=== PATIENT | female | born 1980 | race Caucasian/White ===

== ENCOUNTER 2018-05-08 16:38 | Emergency (ER) | payer OTHER | END 2018-05-08 18:14 | disposition home or self-care (01) | LOC: JERFT 16:38 ==

== ENCOUNTER 2019-03-07 11:48 | Emergency (ER) | payer OTHER ==
[2019-03-07 11:54] VITALS: BP 121/72; PULSE 106; TEMP 98.5; BMI 26.4
[2019-03-07] MEDS ORDERED: ACETAMINOPHEN 1000 MG/100 ML VIAL (NON FORMULARY) IVPB ONE (12:31)
[2019-03-07] MEDS ORDERED: SODIUM CHLORIDE 1,000 ML IV STA (12:31)
[2019-03-07] MEDS ORDERED: ONDANSETRON 4 MG/2 ML VIAL IVPUSH ONE (12:31)
--- NOTE | 2019-03-07 12:46 | PDOC ---
*Physical Exam - Vital Signs Last Vital Signs Temp Pulse Resp BP Pulse Ox 98.5 F 106 H 19 121/72 99 03/07/19 11:50 03/07/19 11:50 03/07/19 11:50 03/07/19 11:50 03/07/19 11:50 - Physical Exam 03/07/19 12:45 The patient was examined by [AILEEN Ortega] under my direct supervision. I personally evaluated the patient. I concur with the above findings and the plan of care. Discharge - Follow up/Referral Referrals: Zak Woodard PA [Primary Care Provider] - - Patient Discharge Instructions - Post Discharge Activity
[2019-03-07 13:50] LABS: BASO % 0.4 % (0-2.0); EOS % 0.1 % (0-4.5); HEMATOCRIT 38.6 % (32.4-45.2); HEMOGLOBIN 12.9 GM/dL (10.7-15.3); LYMPH % 12.8 % (8-40); MCHC 33.3 g/dl (32.0-36.0); MEAN CELL VOLUME 84.1 fl (80-96); MEAN PLT VOLUME 8.4 fl (7.5-11.1); MONO % 7.7 % (3.8-10.2); PLATELET COUNT 309 K/MM3 (134-434); RBC 4.59 M/mm3 (3.60-5.2); RDW 13.6 % (11.6-15.6); WHITE BLOOD COUNT 7.5 K/mm3 (4.0-10.0)
[2019-03-07 14:14] LABS: ALBUMIN 4.2 g/dl (3.4-5.0); BILIRUBIN,TOTAL 0.5 mg/dL (0.2-1); BLOOD UREA NITROGEN 8.6 mg/dL (7-18); CALCIUM 9.5 mg/dL (8.5-10.1); CREATININE 0.7 mg/dL (0.55-1.3); MAGNESIUM 2.1 mg/dL (1.8-2.4); POTASSIUM 4.1 mmol/L (3.5-5.1); TOT PROT 7.8 g/dl (6.4-8.2)
[2019-03-07] MEDS ORDERED: ACETAMINOPHEN INJECTION 0 ML IVPB ONE (14:28)
[2019-03-07] MEDS ORDERED: ONDANSETRON 4 MG/2 ML VIAL ONE (14:29)
--- NOTE | 2019-03-07 15:21 | PDOC ---
History of Present Illness - General Chief Complaint: Pain Stated Complaint: ABD. PAIN Time Seen by Provider: 03/07/19 12:19 History Source: Patient Exam Limitations: No Limitations Past History - Past Medical History Allergies/Adverse Reactions: Allergies Allergy/AdvReac Type Severity Reaction Status Date / Time Sulfa (Sulfonamide Allergy Verified 03/07/19 11:54 Antibiotics) Home Medications: Ambulatory Orders Cephalexin Monohydrate [Keflex -] 500 mg PO Q8H #21 capsule 05/08/18 Asthma: Yes Cancer: Yes (UTERINE) COPD: No - Surgical History Abdominal Surgery: (UTERINE LASER SX FOR CA) - Psycho Social/Smoking Cessation Hx Smoking History: Never smoked Information on smoking cessation initiated: No Hx Alcohol Use: No Drug/Substance Use Hx: No *Physical Exam - Vital Signs Last Vital Signs Temp Pulse Resp BP Pulse Ox 98.5 F 106 H 19 121/72 99 03/07/19 11:50 03/07/19 11:50 03/07/19 11:50 03/07/19 11:50 03/07/19 11:50 - Physical Exam General Appearance: No: Apparent Distress Respiratory/Chest: positive: Lungs Clear, Normal Breath Sounds. negative: Respiratory Distress Cardiovascular: positive: Regular Rhythm, Regular Rate, S1, S2. negative: Murmur Gastrointestinal/Abdominal: positive: Normal Bowel Sounds, Soft. negative: Tender, Distended, Guarding, Rebound Integumentary: positive: Normal Color Neurologic: positive: Alert ED Treatment Course - LABORATORY CBC & Chemistry Diagram: 03/07/19 13:32 03/07/19 13:32 - ADDITIONAL ORDERS Additional order review: Laboratory Results 03/07/19 13:32 Sodium 137 Potassium 4.1 Chloride 101 Carbon Dioxide 27 Anion Gap 9 BUN 8.6 Creatinine 0.7 Est GFR (CKD-EPI)AfAm 125.61 Est GFR (CKD-EPI)NonAf 108.38 Random Glucose 108 H Calcium 9.5 Magnesium 2.1 Total Bilirubin 0.5 AST 12 L ALT 16 Alkaline Phosphatase 94 Total Protein 7.8 Albumin 4.2 03/07/19 13:32 RBC 4.59 MCV 84.1 MCHC 33.3 RDW 13.6 MPV 8.4 Neutrophils % 79.0 Lymphocytes % 12.8 Monocytes % 7.7 Eosinophils % 0.1 Basophils % 0.4 - Medications Given in the ED: ED Medications Discontinued Medications Generic Name Dose Route Start Last Admin Trade Name Bry PRN Reason Stop Dose Admin Acetaminophen 1,000 mg 03/07/19 12:31 03/07/19 14:51 Ofirmev Injection - IVPB 03/07/19 12:32 Not Given ONCE ONE Sodium Chloride 1,000 mls @ 1,000 mls/hr 03/07/19 12:31 03/07/19 14:51 Normal Saline - IV 03/07/19 13:30 Not Given ASDIR STA Ondansetron HCl 4 mg 03/07/19 12:31 03/07/19 14:51 Zofran Injection IVPUSH 03/07/19 12:32 Not Given ONCE ONE Medical Decision Making - Medical Decision Making 38 y/o F with hx of uterine CA s/p hysterectomy (08/2018) presents with epigastric pain, NBNB emesis x3, watery diarrhea x4 episodes from midnight today. Patient traveled to last week; mentions she had diarrhea while in [place] as well, but it resolved after few days. Also mentions subjective fever from today, but did not check temperature. Mentions she had some food at work yesterday and is not sure if that is what triggered her symptoms. Denies use of abx, sob, cp, urinary symptoms. Patient afebrile here (did not take any antipyretics) Labs reviewed and unremarkable Patient drank large amount of water (given PO) and tolerated crackers as well Patient clinically appears well Patient had no episode of vomiting or diarrhea while in ED Do not feel this currently necessitates need for abx D/W Dr. Loo 03/07/19 15:16 Discharge - Discharge Information Problems reviewed: Yes Clinical Impression/Diagnosis: Acute gastroenteritis Condition: Stable Disposition: HOME - Admission No - Additional Discharge Information Prescription Drug Monitoring Program (I-STOP) results: I-STOP not reviewed - Follow up/Referral Referrals: Zak Woodard PA [Primary Care Provider] - 2 Days - Patient Discharge Instructions Patient Printed Discharge Instructions: DI for Viral Gastroenteritis -- Adult Additional Instructions: Thank you for choosing [facility]. It was a pleasure taking care of you. Drink at least 3L of water daily Eat light food like bananas, rice, applesauce, toast, soup, crackers until feeling better Follow-up with your doctor in 2 days Return to the Emergency Department if your symptoms worsen or persist, you have fever, unable to keep down liquids, or other concerning symptoms. - Post Discharge Activity
== END 2019-03-07 15:22 | disposition home or self-care (01) ==
LOC: JER 11:48
DX: K52.9 Noninfective gastroenteritis and colitis, unspecified (principal); Z88.2 Allergy status to sulfonamides; Z85.42 Personal history of malignant neoplasm of other parts of uterus; J45.909 Unspecified asthma, uncomplicated
CPT/HCPCS: 36415; 80053; 83735; 85025; 99282-25

== ENCOUNTER 2020-11-07 17:12 | Emergency (ER) | payer OTHER ==
[2020-11-07 17:49] VITALS: BP 127/79; PULSE 68; TEMP 98.3; BMI 27.3
[2020-11-07] MEDS ORDERED: KETOROLAC TROMETHAMINE 30 MG/1 ML VIAL IVPUSH ONE (20:37)
[2020-11-07 20:59] LABS: EOS % 2.5 % (0-4.5); HEMATOCRIT 38.3 % (32.4-45.2); HEMOGLOBIN 13.1 GM/dL (10.7-15.3); LYMPH % 38.7 % (8-40); MCH 29.6 pg (25.7-33.7); MCHC 34.1 g/dl (32.0-36.0); MEAN CELL VOLUME 86.8 fl (80-96); MEAN PLT VOLUME 8.3 fl (7.5-11.1); MONO % 7.9 % (3.8-10.2); NEUT % 49.9 % (42.8-82.8); PLATELET COUNT 281 10^3/uL (134-434); RBC 4.41 M/mm3 (3.60-5.2); RDW 13.5 % (11.6-15.6); WHITE BLOOD COUNT 7.3 K/mm3 (4.0-10.0)
[2020-11-07 21:24] LABS: CHLORIDE 105 mmol/L (98-107); SODIUM 139 mmol/L (136-145)
[2020-11-07 21:26] LABS: CALCIUM 8.8 mg/dL (8.5-10.1)
[2020-11-07 21:27] LABS: ALBUMIN 4.3 g/dl (3.4-5.0); ANION GAP 9 MMOL/L (8-16); BLOOD UREA NITROGEN 14.9 mg/dL (7-18); CO2 25 mmol/L (21-32); GLUCOSE,RANDOM 109 mg/dL (74-106)
[2020-11-07 21:30] LABS: CREATININE 0.7 mg/dL (0.55-1.3); SGOT/AST 32 U/L (15-37); SGPT/ALT 19 U/L (13-61)
[2020-11-07 21:31] LABS: BILIRUBIN,TOTAL 0.4 mg/dL (0.2-1); TOT PROT 7.8 g/dl (6.4-8.2)
[2020-11-07 21:33] LABS: ALK PHOS 86 U/L (45-117)
[2020-11-07] MEDS ORDERED: IBUPROFEN 600 MG TABLET (FP) PO ONE ×2 (21:50→21:51)
== END 2020-11-07 22:18 | disposition home or self-care (01) ==
LOC: JER 17:12
DX: R07.9 Chest pain, unspecified (principal)
CPT/HCPCS: 36415; 71046-TC-FY; 80053; 84484; 85025; 93005; 93010; 99285-25